=== PATIENT | female | born 2000 | race Hispanic/Latino ===

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

== ENCOUNTER 2020-01-27 23:11 | Emergency (ER) | payer OTHER, SELFPAY ==
[2020-01-27] MEDS ORDERED: ALPRAZolam 0.5 MG TAB ONE (23:41)
== END 2020-01-28 00:33 | disposition home or self-care (01) ==
LOC: MADERS 23:11
DX: F41.9 Anxiety disorder, unspecified (principal); R73.03 Prediabetes
CPT/HCPCS: 99283

== ENCOUNTER 2020-01-30 00:03 | Emergency (ER) | payer SELFPAY ==
[2020-01-30] MEDS ORDERED: Lorazepam 2 MG/ML VIAL ONE (00:22)
[2020-01-30 01:14] LABS: #Basophils 0.1 thou/uL (0.0-0.2); #Eosinphils 0.1 thou/uL (0.0-0.7); #Lymphocytes 3.5 thou/uL (1.20-3.40); #Monocytes 0.5 thou/uL (0.11-0.59); #Neutrophils 5.4 thou/uL (1.40-6.50); %Basophils 1.2 % (0.0-1.0); %Eosinophils 0.6 % (0.0-10.0); %Lymphocytes 36.3 % (28.0-48.0); %Monocytes 5.5 % (0.0-4.0); %Neutrophils 56.4 % (31.0-61.0); Hemoglobin 13.5 g/dL (12.0-16.0); Mean Corpuscular HGB CONC 30.8 g/dL (32.0-36.0); Mean Corpuscular Hemoglobin 27.3 pg (25.0-35.0); Mean Corpuscular Volume 88.7 fL (78.0-98.0); Mean Platelet Volume 6.6 fL (7.4-10.4); Platelet Count 373 thou/uL (130-400); RBC Distribution Width 12.8 % (11.5-14.5); Red Blood Cell (RBC) Count 4.96 mill/uL (4.00-5.20); White Blood Cell (WBC) Count 9.6 thou/uL (4.8-10.8)
[2020-01-30 02:03] LABS: ALT (SGPT) 35 U/L (8-55); AST (SGOT) 20 U/L (5-30); Albumin 4.5 g/dL (3.5-5.0); Alkaline Phosphatase 112 U/L (40-100); Anion Gap 17 mmol/L (10-20); BUN (Urea Nitrogen) 10 mg/dL (8.4-21.0); Bilirubin, Total 0.3 mg/dL (0.2-1.2); CK (CPK) 58 U/L (29-168); Calc. Creatinine Clearance 0 mL/min (70-130); Calcium 9.7 mg/dL (7.8-10.44); Carbon Dioxide 20 mmol/L (22-29); Chloride 105 mmol/L (98-107); Estimated GFR-MDRD Greater than 90; Globulin 3.6 g/dL (2.4-3.5); Glucose 153 mg/dL (70-105); Potassium 3.2 mmol/L (3.5-5.1); Protein, Total 8.1 g/dL (6.0-8.3); Sodium 139 mmol/L (136-145)
--- NOTE | 2020-01-30 07:51 | RAD ---
EXAM: Single view of the chest HISTORY: Dyspnea COMPARISON: None FINDINGS: Single view of the chest shows a normal sized cardiomediastinal silhouette. There is no ileana dence of consolidation, mass, or pleural effusion. No acute osseous abnormality. IMPRESSION: No evidence of acute cardiopulmonary disease
== END 2020-01-30 01:09 | disposition home or self-care (01) ==
LOC: MADERS 00:03
DX: F41.9 Anxiety disorder, unspecified (principal); R06.02 Shortness of breath
CPT/HCPCS: 36415; 71045; 80053; 82550; 84484; 85025; 93005; 96372; J2060